=== PATIENT | female | born 1940 | race African-American/Black ===

== ENCOUNTER 2016-07-16 07:12 | Inpatient (IN) ==
--- NOTE | 2016-07-16 07:43 | PROVIDER DOCUMENTATION ---
HPI-General Adult <Mitesh Martinez M - Last Filed: 07/16/16 07:43> - General Source: patient - History of Present Illness -Gen Adult Nature of Presenting Problems: patient is a 75 y/o F that presents to the ER with two complaints: 1) no bowel movement x 2 days. Has some mild abdominal fullness and tenderness. Denies n/v/d. Is on pain medications for RA. Denies fever/chills 2) Patient had a fall x 3 days ago and landed on her lumbar/tailbone region. Since she has had pain but has full ROM to hips and able to walk. Saw her RA MD and given pain meds Location of Pain/Injury: reports: abdomen, back Pain Radiation: reports: no radiation Quality of Pain: reports: dull Severity: reports: mild, moderate Onset/Duration: reports: abrupt, 3 days ago Timing: reports: still present, constant Context/Activities at Onset: reports: recent trauma history Modifying Factors: worse with: movement Associated Symptoms: reports: back/neck pain, constipation, joint pain, vomiting , weakness, trouble walking. denies: fever/chills, genitourinary problems, nausea, shortness of breath Similar Symptoms Previously?: No Recently seen or treated by another doctor?: No <Lionel Bright - Last Filed: 07/16/16 10:01> - General Chief Complaint: N/V/D Stated Complaint: weakness dizziness Time Seen by Provider: 07/16/16 07:20 Allergies/Adverse Reactions: Patient Allergies Allergy/AdvReac Type Severity Reaction Status Date / Time cephalexin monohydrate * Allergy Unknown Unknown Verified 07/16/16 07:47 [From [facility]] Home Medications: Home Medication List Medication Instructions Recorded Confirmed Last Taken Type Alprazolam [Xanax] 0.25 mg PO DAILY 11/03/15 07/16/16 07/14/16 History Amlodipine Besylate [Norvasc] 5 mg PO DAILY 11/03/15 07/16/16 1 Day Ago History Aspirin [Aspirin EC] 81 mg PO DAILY 11/03/15 07/16/16 1 Day Ago History Bupropion [Wellbutrin] 100 mg PO BID 11/03/15 07/16/16 1 Day Ago History Buspirone [Buspar] 10 mg PO BID 11/03/15 07/16/16 1 Day Ago History Cholecalciferol (Vitamin D3) 1,000 unit PO DAILY 11/03/15 07/16/16 1 Day Ago History [Vitamin D3] Citalopram [Celexa] 20 mg PO DAILY 11/03/15 07/16/16 1 Day Ago History Clonidine HCl 0.2 mg PO DAILY 11/03/15 07/16/16 1 Day Ago History Levothyroxine [Synthroid] 100 microgm PO DAILY 11/03/15 07/16/16 1 Day Ago History Metformin HCl 500 mg PO DAILY 11/03/15 07/16/16 1 Day Ago History Ondansetron HCl [Zofran] 12.5 mg PO TID PRN 11/03/15 07/16/16 1 Day Ago History Ramipril [Altace] 10 mg PO DAILY 11/03/15 07/16/16 1 Day Ago History SIMVAstatin [Zocor] 40 mg PO QHS 11/03/15 07/16/16 1 Day Ago History Spironolactone/Hctz [Aldactazide 1 each PO DAILY 11/03/15 07/16/16 07/15/16 History 25/25] Docusate Sodium [Colace] 100 mg PO BID #60 capsule 11/11/15 07/16/16 2 Days Ago Rx Carbidopa 25 mg PO TID 07/16/16 07/16/16 1 Day Ago History Carbidopa/Levodopa [Sinemet 25/250] 1 each PO TID 07/16/16 07/16/16 1 Day Ago History Gabapentin [Neurontin] 300 mg PO DAILY 07/16/16 07/16/16 1 Day Ago History Hydrocodone/APAP 7.5 mg/325 mg 1 each PO Q6H PRN PRN 07/16/16 07/16/16 1 Day Ago History [[place]-7.5] Sulfamethoxazole/Trimethoprim 1 each PO QAM 07/16/16 07/16/16 2 Days Ago History [Bactrim Ds Tablet] Review of Systems - Adult - REVIEW OF SYSTEMS - ADULT Constitutional: denies: chills, fever Eyes: denies: double vision Ears, Nose, Mouth & Throat: denies: ear pain, sinus problem, throat pain, throat swelling Cardiovascular: denies: chest pain, palpitations, syncope Respiratory: denies: cough, shortness of breath, wheezing Gastrointestinal: reports: abdominal pain, constipation. denies: diarrhea, nausea, vomiting Genitourinary: reports: no symptoms reported Musculoskeletal: reports: back pain (lower lumbar). denies: joint pain, neck pain Integumentary: reports: no symptoms reported Neurological: reports: no symptoms reported Psychiatric: reports: no symptoms reported Endocrine: reports: no symptoms reported Hematologic/Lymphatic: reports: no symptoms reported Allergic/Immunologic: reports: no symptoms reported All Other Systems: Reviewed and Negative <Lionel Bright - Last Filed: 07/16/16 10:01> Past History - Adult - PAST MEDICAL HISTORY-ADULT Major Childhood Illnesses: reports: denies history Cardiovascular: reports: HTN, hyperlipidemia Neurological: reports: TIA Endocrine/Immune: reports: Diabetes, thyroid disorder Other Conditions: reports: cataract/glaucoma - PRIOR SURGERIES/PROCEDURES Surgical/Procedure History: reports: hysterectomy, tonsillectomy, joint replacement (Total knee), other (cataract removal, oral Sx, ) - PRIOR HOSPITALIZATIONS Prior Hospitalizations: reports: none - IMMUNIZATION STATUS Childhood Immunizations: UTD Flu Vaccine: UTD - FAMILY HISTORY Family History: reviewed, not pertinent <Mitesh Martinez - Last Filed: 07/16/16 07:43> - PAST MEDICAL HISTORY-ADULT Review of Records: reports: Old Records Reviewed, Nursing Assessment Review, Medications Reviewed Cardiovascular: reports: HTN, hyperlipidemia Musculoskeletal: reports: arthritis, chronic pain Neurological: reports: Parkinson's Endocrine/Immune: reports: thyroid disorder (hypo) - PRIOR SURGERIES/PROCEDURES Surgical/Procedure History: reports: cholecystectomy, hysterectomy, tonsillectomy, orthopedic (extremity) - IMMUNIZATION STATUS Childhood Immunizations: See Nurse Assessment Flu Vaccine: See Nurse Assessment - FAMILY HISTORY Family History: reviewed, not pertinent - SOCIAL HISTORY Smoking: non-smoker Living Situation: family <Lionel Bright - Last Filed: 07/16/16 10:01> Physical Exam-General - PHYSICAL EXAM-ADULT Initial Vital Signs Reviewed: Yes - CONSTITUTIONAL General Appearance: alert, no apparent distress - EYES Eyes: PERRL/EOMI, pink conjunctivae - HEAD, EARS, NOSE, MOUTH & THROAT HENMT: normocephalic/atraumatic, normal ENT inspection, other (dry oral mucosa) - NECK Neck: non-tender, full range of motion, normal inspection - RESPIRATORY Respiratory: chest non-tender, lungs clear, normal breath sounds, no respiratory distress, no accessory muscle use - CARDIOVASCULAR Cardiovascular: regular rate, rhythm, no edema, no JVD - GASTROINTESTINAL (ABDOMEN) Abdominal Exam: normal bowel sounds, soft, no organomegaly, no pulsatile mass, tenderness (LLQ and suprapubic), other (mild fullness). negative: distended, guarding, rigid, rebound - MUSCULOSKELETAL Back Exam: vertebral tenderness (L4, L5 mildly). negative: muscle spasm Extremity: normal range of motion, no calf tenderness, normal capillary refill, pelvis stable, tenderness (left hip but has full ROM) - SKIN Integumentary: normal color, warm/dry - NEUROLOGIC Neurologic: other (mild tremors more on right). negative: aphasia - PSYCHIATRIC Psych/Mental Status: normal mood/affect, normal thought content, normal thought process, oriented x 3 <Lionel Bright - Last Filed: 07/16/16 10:01> Progress - PLAN OF CARE/RESULTS Progress/Plan/Lab Results: plan of care-labs, ekg, xray, ct scan Vital Signs Temp Pulse Resp BP Pulse Ox 07/16/16 07:42 77 22 160/77 98 07/16/16 07:18 99 F 91 H 22 160/77 98 cephalexin monohydrate * [From One Month] Allergy (Unknown, Verified 07/16/16 07:47 ) Unknown Alprazolam [Xanax] 0.25 mg PO DAILY 11/03/15 Amlodipine Besylate [Norvasc] 5 mg PO DAILY 11/03/15 Aspirin [Aspirin EC] 81 mg PO DAILY 11/03/15 Bupropion [Wellbutrin] 100 mg PO BID 11/03/15 Buspirone [Buspar] 10 mg PO BID 11/03/15 Cholecalciferol (Vitamin D3) [Vitamin D3] 1,000 unit PO DAILY 11/03/15 Citalopram [Celexa] 20 mg PO DAILY 11/03/15 Clonidine HCl 0.2 mg PO DAILY 11/03/15 Levothyroxine [Synthroid] 100 microgm PO DAILY 11/03/15 Metformin HCl 500 mg PO DAILY 11/03/15 Ondansetron HCl [Zofran] 12.5 mg PO TID PRN 11/03/15 Ramipril [Altace] 10 mg PO DAILY 11/03/15 SIMVAstatin [Zocor] 40 mg PO QHS 11/03/15 Spironolactone/Hctz [Aldactazide ] 1 each PO DAILY 11/03/15 Docusate Sodium [Colace] 100 mg PO BID #60 capsule 11/11/15 Carbidopa 25 mg PO TID 07/16/16 Carbidopa/Levodopa [Sinemet 25/250] 1 each PO TID 07/16/16 Gabapentin [Neurontin] 300 mg PO DAILY 07/16/16 Hydrocodone/APAP 7.5 mg/325 mg [[place]-7.5] 1 each PO Q6H PRN PRN 07/16/16 Sulfamethoxazole/Trimethoprim [Bactrim Ds Tablet] 1 each PO QAM 07/16/16 Dietary Diet NPO Start SatJul 16 724 I&O 07/15/16 07/16/16 07/17/16 06:59 06:59 06:59 Output Total 15 Balance -15 Laboratory 07/16/16 07/16/16 07/16/16 07:40 07:40 07:25 WBC 7.61 RBC 4.50 Hgb 11.9 L Hct 37.4 MCV 83.1 MCH 26.4 L MCHC 31.8 L RDW Std Deviation 16.4 H Plt Count 277 MPV 9.4 Immature Gran % (Auto) 0.3 Neut % (Auto) 74.7 Lymph % (Auto) 16.6 L Giles % (Auto) 7.4 Eos % (Auto) 0.7 Baso % (Auto) 0.3 Immature Gran # (Auto) 0.02 Neut # (Auto) 5.70 Lymph # (Auto) 1.26 Giles # (Auto) 0.56 Eos # (Auto) 0.05 Baso # (Auto) 0.02 Sodium Potassium Chloride Carbon Dioxide Anion Gap BUN Creatinine Estimated GFR/1.73 m2 BUN/Creatinine Ratio Glucose Calculated Osmolality Calcium Total Bilirubin AST ALT Alkaline Phosphatase Troponin T Total Protein Albumin Globulin Albumin/Globulin Ratio Amylase Lipase Urine Source CLEAN CATCH Cancelled Urine Color YELLOW Cancelled Urine Clarity CLEAR Urine Turbidity Cancelled Urine pH 7.5 Cancelled Ur Specific Mize 1.015 Cancelled Urine Protein NEGATIVE Cancelled Ur Glucose (Stick) Cancelled Urine Ketones 15 A Ur Ketones (Stick) Cancelled Urine Blood NEGATIVE Cancelled Urine Nitrite NEGATIVE Cancelled Urine Bilirubin MODERATE A Cancelled Urine Urobilinogen 0.2 Urobilinogen Dipstick Cancelled Urine Leukocytes Cancelled Urine WBC (Auto) Cancelled Urine RBC (Auto) Cancelled U Epithel Cells (Auto) Cancelled Urine Bacteria (Auto) Cancelled Urine Microscopic RBC <10 Urine WBC NEGATIVE Urine Microscopic WBC <10 Ur Epithelial Cells <10 Urine Crystals NONE SEEN Urine Bacteria 1+ Urine Casts NONE SEEN Urine Yeast NONE SEEN Urine Glucose NEGATIVE 07/16/16 07/16/16 07:25 07:25 WBC RBC Hgb Hct MCV MCH MCHC RDW Std Deviation Plt Count MPV Immature Gran % (Auto) Neut % (Auto) Lymph % (Auto) Giles % (Auto) Eos % (Auto) Baso % (Auto) Immature Gran # (Auto) Neut # (Auto) Lymph # (Auto) Giles # (Auto) Eos # (Auto) Baso # (Auto) Sodium 138 Potassium 4.7 Chloride 99 Carbon Dioxide 23 L Anion Gap 16 BUN 19 Creatinine 1.1 H Estimated GFR/1.73 m2 59 BUN/Creatinine Ratio 17 Glucose 97 Calculated Osmolality 278 Calcium 9.3 Total Bilirubin 0.56 AST 9 L ALT < 5 L Alkaline Phosphatase 85 Troponin T < 0.010 Total Protein 7.1 Albumin 4.2 Globulin 2.9 Albumin/Globulin Ratio 1.4 Amylase 82 Lipase 15 Urine Source Urine Color Urine Clarity Urine Turbidity Urine pH Ur Specific Mize Urine Protein Ur Glucose (Stick) Urine Ketones Ur Ketones (Stick) Urine Blood Urine Nitrite Urine Bilirubin Urine Urobilinogen Urobilinogen Dipstick Urine Leukocytes Urine WBC (Auto) Urine RBC (Auto) U Epithel Cells (Auto) Urine Bacteria (Auto) Urine Microscopic RBC Urine WBC Urine Microscopic WBC Ur Epithelial Cells Urine Crystals Urine Bacteria Urine Casts Urine Yeast Urine Glucose Orders Category Date Time Status FSBS [Finger Stick Blood Sugar (ED)] DIRECTED Care 07/16/16 07:26 Active Saline Loc DIRECTED Care 07/16/16 07:24 Inactive Saline Loc DIRECTED Care 07/16/16 07:25 Active NPO Diet 07/16/16 07:24 Completed NPO Diet 07/16/16 07:25 Active CHEST-PORTABLE [RAD] Stat Exams 07/16/16 09:[address] ABD/PELVIS W/ IV CONT ONLY [CT] Stat Exams 07/16/16 07:44 Draft AMYLASE [CHEM] Stat Lab 07/16/16 07:25 Completed CBC WITH ELECTRONIC DIFF [HEME] Stat Lab 07/16/16 07:25 Completed COMPREHENSIVE METABOLIC PANEL [CHEM] Stat Lab 07/16/16 07:25 Completed LIPASE [CHEM] Stat Lab 07/16/16 07:25 Completed TROPONIN T Stat Lab 07/16/16 07:25 Completed EKG [EKG] Stat Ther 07/16/16 07:25 Ordered - XRAY 1 XRAY Study: Chest Impression: Normal XRAY Interpretation: nad - CT/MRI 1 CT Study: Abdomen, Pelvis Impression: Abnormal CT Results: constipation with rectal stool impaction, t12 compression fx - CONSULTS/PCP/HOSPITALIST Notification #1 *Consult/PCP/Hospitalist*: Time Discussed: 10:00 Reason/Comments: constipation, dehydration, t12 compression fx, Consult Disposition: Admit <Lionel Bright - Last Filed: 07/16/16 10:01> Departure <Mitesh Martinez - Last Filed: 07/16/16 07:43> - Departure Time of Disposition Order: 10:00 Certified Medical Emergency: Emergent <Lionel Bright - Last Filed: 07/16/16 10:01> - Departure DIAGNOSIS: Dehydration, Constipation due to opioid therapy, Fecal impaction in rectum T12 compression fracture Qualifiers: Encounter type: initial encounter Qualified Code(s): M48.54XA - Collapsed vertebra, not elsewhere classified, thoracic region, initial encounter for fracture Low back pain Qualifiers: Chronicity: acute Back pain laterality: midline Sciatica presence: without sciatica Qualified Code(s): M54.5 - Low back pain Nausea & vomiting Qualifiers: Vomiting type: cyclical vomiting Vomiting Intractability: non-intractable Qualified Code(s): G43.A0 - Cyclical vomiting, not intractable Disposition: ADMITTED INPATIENT 09 Condition: Stable Attestation - Scribe Verification/Attestation Scribe:: Lionel Bright Acting as Scribe for:: Mitesh Martinez Scribe documention review:: This chart was documented by a scribe and accurately reflects the service the provider performed and the decisions made by the provider. <Lionel Bright - Last Filed: 07/16/16 10:01> Physician Attestation - Physician Attestation I, the provider, attest to the following statement:: Mitesh Martinez Physician documentation Attestation:: This documentation recorded by the scribe accurately reflects the service I personally performed and the decisions made by me. <Lionel Bright - Last Filed: 07/16/16 10:01>
[2016-07-16 07:59] LABS: MANUAL DIFF NEEDED? NO
[2016-07-16 08:10] LABS: BASO% 0.3 % (0.0-0.8); EOS# 0.05 X1000 (0.0-0.7); EOS% 0.7 % (0.0-10.0); HEMATOCRIT 37.4 % (37.0-47.0); HEMOGLOBIN 11.9 g/dL (12.0-16.0); IMM GRAN# 0.02 X1000 (0.0-0.04); IMM GRAN% 0.3 % (0.0-0.5); LYMPH# 1.26 X1000 (1.2-3.4); LYMPH% 16.6 % (20.5-51.1); MCH 26.4 PG (27-31); MCHC 31.8 g/dL (33-37); MCV 83.1 FL (81-99); MONO# 0.56 X1000 (0.11-0.59); MONO% 7.4 % (1.7-9.3); MPV 9.4 FL (7.4-10.4); NEUT% 74.7 % (42.2-75.2); PLT 277 X1000 (130-400)
[2016-07-16 08:11] LABS: URINE SOURCE CLEAN CATCH
[2016-07-16 08:14] LABS: BILIRUBIN URINE MODERATE (NEGATIVE); BLOOD URINE NEGATIVE (NEGATIVE); CLARITY CLEAR (CLEAR); COLOR YELLOW; GLUCOSE URINE NEGATIVE (NEGATIVE); LEUKOCYTES URINE NEGATIVE (NEGATIVE); NITRITE URINE NEGATIVE (NEGATIVE); PH URINE 7.5; PROTEIN URINE NEGATIVE (NEGATIVE); SP GRAVITY URINE 1.015; UROBILINOGEN URINE 0.2 EU/dL (0.2-1.0)
[2016-07-16 08:21] LABS: AGAP 16; ALBUMIN 4.2 g/dL (3.5-5.0); ALKALINE PHOSPHATASE 85 U/L (32-104); AMYLASE 82 U/L (20-200); BUN 19 mg/dL (8-22); CALCIUM 9.3 mg/dL (8.8-10.2); CHLORIDE 99 mmol/L (98-107); COSMO 278; GOT 9 U/L (10-30); GPT < 5 U/L (10-36); LIPASE 15 U/L (13-60); POTASSIUM 4.7 mmol/L (3.5-5.1); SODIUM 138 mmol/L (136-145); TCO2 23 mmol/L (25-35); TOTAL BILIRUBIN 0.56 mg/dL (0.20-1.00); TOTAL PROTEIN 7.1 g/dL (6.3-8.3)
[2016-07-16 08:24] LABS: URINE CAST NONE SEEN /LPF; URINE CRYSTAL NONE SEEN /HPF; URINE CULTURE NEEDED? NO; URINE EPITHELIAL CELLS <10 /HPF (<10); URINE RBC <10 /HPF (<10); URINE WBC <10 /HPF (<10)
--- NOTE | 2016-07-16 08:59 | ED EKG INTERP ---
EKG Interpretation - EKG Time of EKG reading by physician:: 07:59 EKG Read and Signed by:: Mitesh Martinez EKG Interpretation (*Must complete 3 of following elements*): Abnormal Rate: 73 Rhythm: NSR [place]: normal QRS: normal MT Interval: normal ST Wave: normal Comments: LAE Attestation - Scribe Verification/Attestation Scribe:: Lionel Bright Acting as Scribe for:: Mitesh Martinez Scribe documention review:: This chart was documented by a scribe and accurately reflects the service the provider performed and the decisions made by the provider. Physician Attestation - Physician Attestation I, the provider, attest to the following statement:: Mitesh Martinez Physician documentation Attestation:: This documentation recorded by the scribe accurately reflects the service I personally performed and the decisions made by me.
--- NOTE | 2016-07-16 09:44 | Diag Imaging Result Document ---
PROCEDURE NAME: CT ABD/PELVIS W/ IV CONT ONLY - 07/16/2016 CT ABDOMEN AND PELVIS WITH INTRAVENOUS CONTRAST: A CT dose reduction protocol was used. COMPARISON: 09/16/2014. FINDINGS: The lung bases are clear. Heart size is grossly normal. There has been a cholecystectomy. The common bile duct is mildly dilated but this is nonspecific. No intrahepatic biliary dilation. The left renal cyst is slightly larger on today's exam measuring about 3.8 cm. There are some other scattered renal cysts as well. There is constipation with rectal stool impaction. There is diverticulosis of the sigmoid colon. No bowel obstruction or inflammation. Normal appendix. Urinary bladder is normal. Uterus is absent. There is a mild T12 compression fracture that is new since the prior exam with about 20% loss of height. IMPRESSION: 1. Constipation with rectal stool impaction. 2. New T12 compression fracture, age indeterminate. 3. Other nonspecific findings described above. MTDD
[2016-07-16] MEDS ORDERED: MORPHINE IV PRN ×2 (10:02→19:33)
[2016-07-16] MEDS ORDERED: TYLENOL PO PRN (10:02)
[2016-07-16] MEDS ORDERED: NS 1,000 ML IV ONE (10:10)
[2016-07-16] MEDS ORDERED: MORPHINE ONE (10:13)
[2016-07-16] MEDS: ZOFRAN IV PRN ×2 (10:26→21:37)
--- NOTE | 2016-07-16 11:25 | Diag Imaging Result Document ---
PROCEDURE NAME: CHEST-PORTABLE - 07/16/2016 PORTABLE CHEST: COMPARISON: 11/04/2015. FINDINGS: The lungs are well expanded. The heart is not enlarged. The vessels are not distended. No contusions or pneumothoraces. No pleural effusions identified. IMPRESSION: No injury is seen.
--- NOTE | 2016-07-16 12:53 | EKG Report ---
Test Performed on : 07/16/2016 07:59:59 AM Test Reason : FALL Blood Pressure : / mmHG Vent. Rate : 073 BPM Atrial Rate : 073 BPM P-R Int : 148 ms QRS Dur : 076 ms QT Int : 396 ms P-R-T Axes : 071 019 058 degrees QTc Int : 436 ms Normal sinus rhythm. Possible Left atrial enlargement Borderline ECG When compared with ECG of 04-NOV-2015 05:54, Criteria for Septal infarct are no longer present Unconfirmed Result
[2016-07-16] MEDS: SODIUM CHLORIDE 0.9% INJ PRN (15:30)
[2016-07-16] MEDS: PHENERGAN IV PRN (15:30)
[2016-07-16 16:45] LABS: URINE CULTURE NEEDED? NO; URINE MICRO REVIEW NEEDED? NO; URINE SOURCE CATH
[2016-07-16 16:55] LABS: UR EPITHELIAL CELLS <10 /HPF (<10); URINE BACTERIA NEGATIVE /HPF; URINE RBC <10 /HPF (<10); URINE WBC <10 /HPF (<10)
[2016-07-16 17:00] LABS: BILIRUBIN URINE MODERATE (NEGATIVE); BLOOD URINE NEGATIVE (NEGATIVE); COLOR YELLOW; GLUCOSE URINE NEGATIVE (NEGATIVE); LEUKOCYTES URINE NEGATIVE (NEGATIVE); NITRITE URINE NEGATIVE (NEGATIVE); PH URINE 6.5; PROTEIN URINE NEGATIVE (NEGATIVE); SP GRAVITY URINE 1.042; TURBIDITY URINE CLEAR (CLEAR); UROBILINOGEN URINE NORMAL (NORMAL)
[2016-07-16] MEDS: PROTONIX IV SCH (21:37)
[2016-07-16] MEDS: SODIUM CHLORIDE 0.9% INJ SCH (21:37)
[2016-07-16] MEDS: DILAUDID IV PRN (21:37)
[2016-07-16] MEDS: BUSPAR PO SCH (21:40)
[2016-07-16] MEDS: CLINIMIX E 4.25%-5% SOLUTION 1,000 ML IV SCH (21:40)
[2016-07-16] MEDS: WELLBUTRIN PO SCH (21:40)
[2016-07-16] MEDS: ZOCOR PO SCH (21:40)
[2016-07-16] MEDS: HUMULIN R SUBQ SCH (21:41)
[2016-07-16] MEDS: COLACE PO SCH (21:45)
--- NOTE | 2016-07-16 22:03 | HISTORY AND PHYSICAL ---
CHIEF COMPLAINT: 1. Intractable nausea, vomiting. 2. Constipation. 3. History of fall, sustained injury to the mid back. HISTORY OF PRESENT ILLNESS: She is a 75-year-old, female who had been seen by purchasing manager/sales, Dr. Méndez. Apparently he gave some injections, steroid shots, and she went home and fell backwards sustaining injury to the back. She is in a lot of pain. Patient was given [place]. Apparently, she came back to the ER this afternoon with intractable nausea, vomiting, and back pain. Upon workup she has constipation and she has a new T12 compression fracture. She is not able to eat anything. As a result, a hospital admission was warranted. Upon questioning the patient, the pain is localized sometimes radiating to the right leg but no sensory symptoms like tingling, numbness or weakness. Basically admitted to the hospital for the T12 compression fracture, constipation, impending dehydration. As a result, a hospital admission was warranted. PAST MEDICAL HISTORY: Type 2 diabetes, metabolic syndrome, hypertension, hyperlipidemia, hypothyroidism, retinal detachment of left eye, history of Schatzki's ring dilated by Dr. 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 PAST SURGICAL HISTORY: Left ganglion cyst excision, tonsillectomy, thyroid surgery, cholecystectomy, left cataract surgery, partial hysterectomy, left ganglion cyst, status post right knee replacement, rotator cuff repair. MEDICATIONS: Vitamin D 3000 units daily, metformin 500 p.o. daily, simvastatin 40 daily, amlodipine 5 mg daily, Aldactazide 20/25 daily, clonidine 0.2 daily, aspirin 81 mg daily, Xanax 0.25 daily, Celexa 20 daily, BuSpar 10 p.o. b.i.d., Wellbutrin 100 p.o. b.i.d., Altace 10 mg daily, Synthroid 100 mcg daily, Zofran as needed, Colace 100 p.o. b.i.d., [place] 7.5 q.6 hours as needed, recently started on Bactrim, Sinemet 25/250 one tab p.o. t.i.d., carbidopa 25 p.o. t.i.d., Neurontin 300 daily. ALLERGIES: Cephalexin. SOCIAL HISTORY: . . Homemaker. History of previous smoking. No alcohol. Two children. FAMILY HISTORY: Mom of suicide at 50, father cause not known. HEALTH MAINTENANCE: Influenza vaccine 2016, pneumococcal vaccine 2016, tetanus 2011. Last mammography 2013. Colonoscopy 2008. REVIEW OF SYSTEMS: HEENT: No headache. No vision problem. No earache. No sore throat. Neck: No goiter. No lymphadenopathy. No bruit. Cardiopulmonary: No chest pain, shortness of breath, PND, orthopnea. Gastrointestinal: Nausea, vomiting, constipation, intermittent bleeding per rectum. She was referred to Dr. Mcelroy. Genitourinary: No history of hesitancy, frequency. No swelling of legs. Musculoskeletal: Intractable back pain localized. No radiation. No weakness. No sensory symptoms like tingling, numbness, paresthesias. Neurologic: No seizures. No dizziness/vertigo. PHYSICAL EXAMINATION: VITAL SIGNS: Stable. 5 feet 6 inches, 171 pounds. HEENT: Atraumatic, normocephalic. Pupils equal, reactive to light. TMs are normal. Nose and throat within normal limits. NECK: Supple. No lymphadenopathy. No goiter. CHEST: Bilateral air entry. No rales, no wheezing. HEART: Sounds are regular. No murmur. ABDOMEN: Belly is soft, obese, nontender, good bowel sounds. No masses palpable. SKIN: Scar present on the right knee. EXTREMITIES: No peripheral edema, cyanosis, clubbing. NEUROLOGIC EXAMINATION: Alert and oriented to place and person. No obvious deficits noted in the legs. LABORATORIES: CBC: White cell count 7.6, hematocrit 37, platelets 277,000. SMA 7 is sodium 138, potassium 4.7, chloride 99, BUN 19, creatinine 1.1. Liver function tests were normal. Urinalysis with slight ketones. Chest x-ray on 07/16/2016: No injury seen. CT scan of the abdomen and pelvis: Constipation, new T12 compression fracture. ASSESSMENT AND PLAN: 1. A 75-year-old pleasant, female, admitted to the hospital with intractable back pain due to a new T12 compression fracture, most likely osteoporotic. Consider bone scan and back brace, physical therapy, pain control with Dilaudid and if any change in neurological deficits consider MRI. 2. Deep vein thrombosis. GI prophylaxis with Lovenox and Protonix respectively. 3. Nausea and vomiting due to pain and constipation. IV Dilaudid, IV Zofran. 4. Constipation. We will give her Dulcolax since she is nauseated. 5. Type 2 diabetes on metformin sliding scale. 6. Reconcile home medicines. 7. Deconditioning with idiopathic Parkinson's disease. Recently seen by Dr. Hills. Increasing carbidopa and Sinemet. 8. Hypothyroidism, on Synthroid with retrosternal goiter. Stable. 9. Hyperlipidemia. On Zocor. 10. We will slowly reconcile home medicines when she is able to tolerate. We will follow up on the clinical course. Discussed with the family.
[2016-07-17] MEDS: HUMULIN R SUBQ SCH ×4 (06:19→22:48)
[2016-07-17] MEDS: SYNTHROID PO SCH (06:20)
[2016-07-17 07:18] LABS: CALCIUM 9.1 mg/dL (8.8-10.2); HEMOGLOBIN A1C 5.6 % (4.8-6.0); POTASSIUM 4.3 mmol/L (3.5-5.1)
[2016-07-17] MEDS: COLACE PO SCH ×2 (08:59→22:47)
[2016-07-17] MEDS: BUSPAR PO SCH ×2 (08:59→22:47)
[2016-07-17] MEDS: NORVASC PO SCH (08:59)
[2016-07-17] MEDS: WELLBUTRIN PO SCH ×2 (08:59→22:49)
[2016-07-17] MEDS: VITAMIN D PO SCH (08:59)
[2016-07-17] MEDS: GLUCOPHAGE PO SCH (09:00)
[2016-07-17] MEDS: ASPIRIN EC PO SCH (09:00)
[2016-07-17] MEDS: ALTACE PO SCH (09:00)
[2016-07-17] MEDS: CELEXA PO SCH (09:00)
[2016-07-17] MEDS: NEURONTIN PO SCH (09:00)
[2016-07-17] MEDS: SINEMET 25/250 PO SCH ×3 (09:00→16:50)
[2016-07-17] MEDS: XANAX PO SCH (09:00)
[2016-07-17] MEDS ORDERED: CATAPRES PO SCH (09:00)
[2016-07-17] MEDS: LOVENOX SUBQ SCH (09:01)
[2016-07-17] MEDS: LODOSYN PO SCH ×3 (09:01→18:13)
--- NOTE | 2016-07-17 14:43 | Diag Imaging Result Document ---
PROCEDURE NAME: BONE SCAN, TOTAL BODY - 07/16/2016 NUCLEAR MEDICINE WHOLE BODY BONE SCAN: COMPARISON: No prior bone scan is available for comparison. FINDINGS: 25.9 mCi of technetium-99 MDP was administered intravenously and images of the whole body were obtained in the usual fashion post administration. Band-like activity is seen involving the T12 vertebral body. This corresponds to a wedge deformity that can be seen on a previous CT dated 07/16/2016. This is consistent with an acute-to- subacute compression fracture. No other abnormal spinal activity is identified. There is evidence of prior right knee arthroplasty. There is mild increased uptake adjacent to the hardware suggesting mild sclerotic shielding. There is degenerative-appearing uptake involving the left knee, bilateral ankles, and both feet. No other abnormal increased uptake is identified. There is normal excretion of radiotracer by the system. Normal soft-tissue uptake is noted. IMPRESSION: 1. Band-like increased activity associated with the T12 vertebral body corresponding to a wedge deformity seen on the recent CT. This is consistent with an [id number] compression fracture. 2. Multijoint degenerative uptake as described.
[2016-07-17] MEDS: CLINIMIX E 4.25%-5% SOLUTION 1,000 ML IV SCH (18:12)
[2016-07-17] MEDS: ZOCOR PO SCH (22:47)
[2016-07-17] MEDS: PROTONIX IV SCH (22:47)
[2016-07-17] MEDS: SODIUM CHLORIDE 0.9% INJ SCH (22:47)
[2016-07-17] MEDS: DULCOLAX PR SCH ×2 (22:48→22:54)
[2016-07-18] MEDS: DILAUDID IV PRN ×2 (01:44→11:24)
[2016-07-18] MEDS: DULCOLAX PR SCH ×2 (05:59→20:09)
[2016-07-18] MEDS: HUMULIN R SUBQ SCH ×4 (06:12→23:53)
[2016-07-18] MEDS: SYNTHROID PO SCH (06:26)
[2016-07-18] MEDS: LOVENOX SUBQ SCH (08:18)
[2016-07-18] MEDS: CELEXA PO SCH (08:19)
[2016-07-18] MEDS: XANAX PO SCH (08:19)
[2016-07-18] MEDS: NORVASC PO SCH (08:19)
[2016-07-18] MEDS: GLUCOPHAGE PO SCH (08:19)
[2016-07-18] MEDS: ASPIRIN EC PO SCH (08:19)
[2016-07-18] MEDS: BUSPAR PO SCH ×2 (08:19→20:08)
[2016-07-18] MEDS: VITAMIN D PO SCH (08:19)
[2016-07-18] MEDS: COLACE PO SCH ×2 (08:19→20:09)
[2016-07-18] MEDS: ALTACE PO SCH (08:19)
[2016-07-18] MEDS: NEURONTIN PO SCH (08:19)
[2016-07-18] MEDS: SINEMET 25/250 PO SCH ×3 (08:21→17:34)
[2016-07-18] MEDS: WELLBUTRIN PO SCH ×2 (08:21→20:08)
[2016-07-18] MEDS: LODOSYN PO SCH ×3 (14:27→17:15)
[2016-07-18] MEDS: CLINIMIX E 4.25%-5% SOLUTION 1,000 ML IV SCH (14:27)
[2016-07-18] MEDS: PROTONIX IV SCH (20:08)
[2016-07-18] MEDS: SODIUM CHLORIDE 0.9% INJ SCH (20:08)
[2016-07-18] MEDS: ZOCOR PO SCH (20:08)
[2016-07-19] MEDS: DILAUDID IV PRN (00:52)
[2016-07-19] MEDS: ZOFRAN IV PRN (00:52)
[2016-07-19] MEDS: SYNTHROID PO SCH (06:32)
[2016-07-19] MEDS: HUMULIN R SUBQ SCH ×4 (06:32→21:18)
[2016-07-19] MEDS: ALTACE PO SCH (09:10)
[2016-07-19] MEDS: LOVENOX SUBQ SCH (09:10)
[2016-07-19] MEDS: BUSPAR PO SCH ×2 (09:10→21:18)
[2016-07-19] MEDS: GLUCOPHAGE PO SCH (09:10)
[2016-07-19] MEDS: VITAMIN D PO SCH (09:11)
[2016-07-19] MEDS: CELEXA PO SCH (09:11)
[2016-07-19] MEDS: XANAX PO SCH (09:11)
[2016-07-19] MEDS: COLACE PO SCH ×2 (09:11→21:18)
[2016-07-19] MEDS: NEURONTIN PO SCH (09:11)
[2016-07-19] MEDS: NORVASC PO SCH (09:11)
[2016-07-19] MEDS: ASPIRIN EC PO SCH (09:12)
[2016-07-19] MEDS: SINEMET 25/250 PO SCH ×3 (09:12→17:35)
[2016-07-19] MEDS: WELLBUTRIN PO SCH ×2 (09:12→21:18)
[2016-07-19] MEDS: LODOSYN PO SCH ×3 (11:20→17:35)
[2016-07-19] MEDS: CLINIMIX E 4.25%-5% SOLUTION 1,000 ML IV SCH (13:05)
[2016-07-19] MEDS: PROTONIX IV SCH (21:17)
[2016-07-19] MEDS: ZOCOR PO SCH (21:18)
[2016-07-19] MEDS: DULCOLAX PR SCH (21:18)
[2016-07-19] MEDS: SODIUM CHLORIDE 0.9% INJ SCH (21:18)
[2016-07-20] MEDS: HUMULIN R SUBQ SCH ×4 (06:20→22:06)
[2016-07-20] MEDS: SYNTHROID PO SCH (06:35)
[2016-07-20] MEDS: CLINIMIX E 4.25%-5% SOLUTION 1,000 ML IV SCH (07:51)
[2016-07-20] MEDS: NEURONTIN PO SCH (09:08)
[2016-07-20] MEDS: GLUCOPHAGE PO SCH (09:08)
[2016-07-20] MEDS: LODOSYN PO SCH ×3 (09:08→17:11)
[2016-07-20] MEDS: ASPIRIN EC PO SCH (09:08)
[2016-07-20] MEDS: CELEXA PO SCH (09:08)
[2016-07-20] MEDS: VITAMIN D PO SCH (09:08)
[2016-07-20] MEDS: NORVASC PO SCH (09:08)
[2016-07-20] MEDS: COLACE PO SCH ×2 (09:08→22:05)
[2016-07-20] MEDS: XANAX PO SCH (09:08)
[2016-07-20] MEDS: BUSPAR PO SCH ×2 (09:08→22:06)
[2016-07-20] MEDS: SINEMET 25/250 PO SCH ×3 (09:08→17:12)
[2016-07-20] MEDS: LOVENOX SUBQ SCH (09:09)
[2016-07-20] MEDS: WELLBUTRIN PO SCH ×2 (09:09→22:05)
[2016-07-20] MEDS: ALTACE PO SCH (09:09)
--- NOTE | 2016-07-20 10:15 | DISCHARGE SUMMARY ---
ADMISSION DATE: 07/17/2016 DISCHARGE DATE: 08/03/2016 DISCHARGING DIAGNOSES: 1. Intractable back pain due to T12 compression fracture. 2. Type 2 diabetes. 3. Metabolic syndrome. 4. Hypertension. 5. Hyperlipidemia. 6. Hypothyroidism. 7. Retinal detachment of left eye. 8. History of acid reflux disease. 9. Retrosternal goiter. 10. Idiopathic Parkinson's disease. CONSULTS: Inpatient physical therapy. BRIEF HISTORY: Please see the H and P that was done on 07/16/2016. In brief, she is a 75-year- old female, who was admitted to the hospital after she fell at home sustained injury to the back at T12 compression fracture. Neurological exam is intact. She did not have any deficits. She was given symptomatic treatment with a back brace, and physical therapy. She was also nauseated and given IV fluids. Pain was adequately controlled. She was constipated requiring Dulcolax and subsequently, she is tolerating the diet very well. With underlying comorbid conditions, and idiopathic Parkinson's disease and T12 compression fracture, family decided to go for rehab at [facility]. DIAGNOSTIC DATA: Labs as follows: White cell count 7.6, hematocrit 37, platelet 277,000. SMA 7, sodium 135, potassium 4.3, chloride 100, BUN 22, creatinine 1.1, glucose 101, liver function tests were normal, vitamin D 56.3. Urinalysis is clear. Bone scan, T12 compression fracture. Chest x-ray: No acute disease identified. EKG: Normal sinus. Nothing acute. DISCHARGE INSTRUCTIONS: 1. Vitamin D 3000 units daily. 2. Metformin 500 daily. 3. Simvastatin 40 daily. 4. Amlodipine 5 daily. Aldactazide 25/25 daily. 5. Discontinue clonidine in light of low blood pressure. 6. Aspirin 81 mg daily. 7. Xanax 0.25 daily. 8. Celexa 20 daily. 9. BuSpar 10 p.o. b.i.d. 10. Wellbutrin 100 p.o. b.i.d. 11. Altace 10 mg daily. 12. Synthroid 100 mcg daily. 13. Colace 100 p.o. b.i.d. 14. Sheridan 7.5 as needed for pain. 15. Sinemet 25/250 one tablet p.o. t.i.d. 16. Carbidopa 25 t.i.d. 17. Neurontin 300 daily. 18. Calcitonin nasal spray 1 spray daily with alternating nostrils. DISCHARGE INSTRUCTIONS: Back brace. Outpatient physical therapy. Follow up in my office in 10 days. MTDD
[2016-07-20] MEDS: ZOCOR PO SCH (22:05)
[2016-07-20] MEDS: SODIUM CHLORIDE 0.9% INJ SCH (22:06)
[2016-07-20] MEDS: PROTONIX IV SCH (22:06)
[2016-07-20] MEDS: DULCOLAX PR SCH (22:06)
[2016-07-21] MEDS: CLINIMIX E 4.25%-5% SOLUTION 1,000 ML IV SCH (00:23)
[2016-07-21] MEDS: ZOFRAN IV PRN ×2 (02:19→06:07)
[2016-07-21] MEDS: PHENERGAN IV PRN ×4 (04:07→23:33)
[2016-07-21] MEDS: SODIUM CHLORIDE 0.9% INJ PRN ×4 (04:07→23:33)
[2016-07-21] MEDS: SYNTHROID PO SCH (06:06)
[2016-07-21] MEDS: HUMULIN R SUBQ SCH ×4 (06:07→23:48)
[2016-07-21] MEDS: BUSPAR PO SCH ×3 (10:01→23:46)
[2016-07-21] MEDS: ALTACE PO SCH (10:01)
[2016-07-21] MEDS: XANAX PO SCH (10:01)
[2016-07-21] MEDS: ASPIRIN EC PO SCH (10:01)
[2016-07-21] MEDS: NORVASC PO SCH (10:02)
[2016-07-21] MEDS: GLUCOPHAGE PO SCH (10:02)
[2016-07-21] MEDS: CELEXA PO SCH (10:02)
[2016-07-21] MEDS: LODOSYN PO SCH ×3 (10:02→16:00)
[2016-07-21] MEDS: COLACE PO SCH ×3 (10:02→23:47)
[2016-07-21] MEDS: NEURONTIN PO SCH (10:02)
[2016-07-21] MEDS: SINEMET 25/250 PO SCH ×3 (10:03→15:59)
[2016-07-21] MEDS: VITAMIN D PO SCH (10:03)
[2016-07-21] MEDS: WELLBUTRIN PO SCH ×3 (10:03→23:48)
[2016-07-21] MEDS: LOVENOX SUBQ SCH (10:04)
--- NOTE | 2016-07-21 13:42 | PROGRESS NOTE ---
DATE: 07/21/2016 75-year-old, patient with multiple medical problems. Admitted status post fall. New compression fracture of T12. The patient is still in moderate pain. Patient is waiting for rehab bed. Patient does have nausea, oral intake is poor. No high-grade fever or chills. Known case of diabetes. Blood sugar doing fair. No major hypoglycemic episode. As per history the patient does have anxiety and nervousness which makes her nauseous. No typical chest pain or palpitation. Denied any headache and no leg weakness. Admission history physical noted. PAST MEDICAL HISTORY: Significant for hypertension, diabetes mellitus, osteoarthritis, hypertension, hyperlipidemia, hypothyroidism, retinal detachment left eye, Schatzki's ring requiring dilatation, retrosternal goiter, idiopathic Parkinson's disease. CURRENT MEDICATION: Noted. Her vital signs reviewed.Skin: Senile turgor. HEENT: Head atraumatic, normocephalic. Pupils reacting to light. Neck: Supple. No JVD. Lungs: Bibasilar crepitations. Heart: S1 and S2 heard. Abdomen: Soft, globular. Bowel sounds present. Extremities: No cyanosis, clubbing. No acute DVT. UNSCRAMBLER: Alert, awake. Answering questions fair. Able to move all 4 limbs. Admission lab data noted. PROBLEMS: Include: Compression fracture of T12, NIDDM, hypertension, hypothyroidism, gastritis and reflux disease, idiopathic Parkinson's disease. Patient medication noted. I am going to check appropriate labs. Continue current treatment. Repeat abdominal x-ray because of nausea.
--- NOTE | 2016-07-21 16:04 | Diag Imaging Result Document ---
PROCEDURE NAME: ABDOMEN FLAT/UPRIGHT - 07/21/2016 ABDOMEN, 2 VIEWS: COMPARISON: CT from 07/16/2016. FINDINGS: There is stable constipation with rectal stool impaction. IMPRESSION: No change from prior.
[2016-07-21] MEDS: SODIUM CHLORIDE 0.9% INJ SCH (19:38)
[2016-07-21] MEDS: PROTONIX IV SCH (19:38)
[2016-07-21] MEDS: ZOCOR PO SCH ×2 (23:34→23:47)
[2016-07-21] MEDS: DULCOLAX PR SCH (23:36)
[2016-07-22] MEDS: SYNTHROID PO SCH (06:23)
[2016-07-22] MEDS: CLINIMIX E 4.25%-5% SOLUTION 1,000 ML IV SCH (06:30)
[2016-07-22] MEDS: HUMULIN R SUBQ SCH ×4 (06:30→20:19)
[2016-07-22 08:19] LABS: BASO% 0.1 % (0.0-0.8); EOS# 0.01 X1000 (0.0-0.7); EOS% 0.1 % (0.0-10.0); HEMATOCRIT 38.7 % (37.0-47.0); HEMOGLOBIN 12.8 g/dL (12.0-16.0); IMM GRAN# 0.04 X1000 (0.0-0.04); IMM GRAN% 0.3 % (0.0-0.5); LYMPH# 0.97 X1000 (1.2-3.4); LYMPH% 7.6 % (20.5-51.1); MANUAL DIFF NEEDED? NO; MCH 27.1 PG (27-31); MCHC 33.1 g/dL (33-37); MONO# 0.85 X1000 (0.11-0.59); MONO% 6.7 % (1.7-9.3); MPV 9.3 FL (7.4-10.4); NEUT% 85.2 % (42.2-75.2); PLT 332 X1000 (130-400); RBC 4.72 XMIL (4.2-5.4)
[2016-07-22 08:23] LABS: AGAP 17; ALBUMIN 4.1 g/dL (3.5-5.0); ALKALINE PHOSPHATASE 96 U/L (32-104); BUN 22 mg/dL (8-22); CALCIUM 9.4 mg/dL (8.8-10.2); CHLORIDE 99 mmol/L (98-107); COSMO 279; GOT 11 U/L (10-30); GPT 15 U/L (10-36); POTASSIUM 4.1 mmol/L (3.5-5.1); SODIUM 137 mmol/L (136-145); TCO2 21 mmol/L (25-35); TOTAL BILIRUBIN 0.57 mg/dL (0.20-1.00); TOTAL PROTEIN 7.7 g/dL (6.3-8.3)
--- NOTE | 2016-07-22 12:19 | PROGRESS NOTE ---
DATE: 07/22/2016 SUBJECTIVE: Ms. Otero is doing fair, though patient is more alert and awake today. Complaining of low back pain. The patient did have a small bowel movement. Her x-ray done yesterday did reveal fecal impaction. No chest pain. Oral intake poor. At times patient is refusing her medicine. Patient admitted with fall and acute T12 fracture. OBJECTIVE: Vital signs: Noted. Lungs: Bilateral good air entry present. CVS: S1 and S2 heard. Abdomen: Soft, globular. Bowel sounds present. MOLD CLAMPER: Alert, awake. Able to move all 4 limbs. LAB DATA: Revealed WBC count 12.75, hemoglobin 12.8, hematocrit 38.7, platelet count 332,000. Electrolytes fairly benign. We are going to check her for a fecal impaction. Her x-ray result done yesterday reviewed. ASSESSMENT: Her problems include: 1. Noninsulin-dependent diabetes mellitus. 2. Hypertension. 3. Hypothyroidism. 4. Compression fracture of T12. 5. Parkinson disease. PLAN: Encourage oral feeding. Advised her to take medicine regularly. Continue current treatment. If clinical condition permits, will plan discharging her to rehab tomorrow.
[2016-07-22] MEDS: XANAX PO SCH (15:44)
[2016-07-22] MEDS: ALTACE PO SCH (15:44)
[2016-07-22] MEDS: WELLBUTRIN PO SCH ×2 (15:45→20:17)
[2016-07-22] MEDS: VITAMIN D PO SCH (15:45)
[2016-07-22] MEDS: SINEMET 25/250 PO SCH ×3 (15:45→18:32)
[2016-07-22] MEDS: ASPIRIN EC PO SCH (15:48)
[2016-07-22] MEDS: NORVASC PO SCH (15:49)
[2016-07-22] MEDS: NEURONTIN PO SCH (15:49)
[2016-07-22] MEDS: LODOSYN PO SCH ×2 (15:50→18:32)
[2016-07-22] MEDS: COLACE PO SCH ×2 (15:50→20:18)
[2016-07-22] MEDS: GLUCOPHAGE PO SCH (15:50)
[2016-07-22] MEDS: LOVENOX SUBQ SCH (15:50)
[2016-07-22] MEDS: CELEXA PO SCH (15:51)
[2016-07-22] MEDS: BUSPAR PO SCH ×2 (15:51→20:18)
[2016-07-22] MEDS: ZOCOR PO SCH (20:17)
[2016-07-22] MEDS: SODIUM CHLORIDE 0.9% INJ SCH (20:18)
[2016-07-22] MEDS: PROTONIX IV SCH (20:18)
[2016-07-22] MEDS: DULCOLAX PR SCH (20:18)
[2016-07-22] MEDS: ZOFRAN IV PRN (20:24)
[2016-07-23] MEDS: DILAUDID IV PRN (00:13)
[2016-07-23] MEDS: CLINIMIX E 4.25%-5% SOLUTION 1,000 ML IV SCH ×3 (04:31→22:04)
[2016-07-23] MEDS: HUMULIN R SUBQ SCH ×4 (06:21→22:03)
[2016-07-23] MEDS: ZOFRAN IV PRN (06:54)
[2016-07-23] MEDS: SYNTHROID PO SCH (07:05)
[2016-07-23] MEDS: ASPIRIN EC PO SCH (09:10)
[2016-07-23] MEDS: WELLBUTRIN PO SCH ×2 (09:10→22:04)
[2016-07-23] MEDS: SINEMET 25/250 PO SCH ×3 (09:10→17:01)
[2016-07-23] MEDS: NEURONTIN PO SCH (09:11)
[2016-07-23] MEDS: VITAMIN D PO SCH (09:11)
[2016-07-23] MEDS: CELEXA PO SCH (09:11)
[2016-07-23] MEDS: XANAX PO SCH (09:11)
[2016-07-23] MEDS: LODOSYN PO SCH ×3 (09:11→17:01)
[2016-07-23] MEDS: ALTACE PO SCH (09:11)
[2016-07-23] MEDS: COLACE PO SCH ×2 (09:11→22:02)
[2016-07-23] MEDS: NORVASC PO SCH (09:11)
[2016-07-23] MEDS: GLUCOPHAGE PO SCH (09:11)
[2016-07-23] MEDS: BUSPAR PO SCH ×2 (09:11→22:03)
[2016-07-23] MEDS: LOVENOX SUBQ SCH (09:11)
[2016-07-23] MEDS: DULCOLAX PR SCH ×2 (13:15→22:02)
[2016-07-23] MEDS: SODIUM CHLORIDE 0.9% INJ SCH (22:02)
[2016-07-23] MEDS: PROTONIX IV SCH (22:02)
[2016-07-23] MEDS: ZOCOR PO SCH (22:03)
[2016-07-24] MEDS: SYNTHROID PO SCH ×2 (04:25→06:18)
[2016-07-24] MEDS: HUMULIN R SUBQ SCH ×4 (06:32→22:56)
[2016-07-24] MEDS: CLINIMIX E 4.25%-5% SOLUTION 1,000 ML IV SCH ×3 (08:47→23:35)
[2016-07-24] MEDS: NEURONTIN PO SCH (08:49)
[2016-07-24] MEDS: ASPIRIN EC PO SCH (08:50)
[2016-07-24] MEDS: BUSPAR PO SCH ×2 (09:01→20:40)
[2016-07-24] MEDS: WELLBUTRIN PO SCH ×2 (09:01→20:40)
[2016-07-24] MEDS: VITAMIN D PO SCH (09:01)
[2016-07-24] MEDS: LODOSYN PO SCH ×3 (09:01→17:20)
[2016-07-24] MEDS: COLACE PO SCH ×2 (09:02→20:40)
[2016-07-24] MEDS: NORVASC PO SCH (09:02)
[2016-07-24] MEDS: ALTACE PO SCH (09:02)
[2016-07-24] MEDS: GLUCOPHAGE PO SCH (09:02)
[2016-07-24] MEDS: CELEXA PO SCH (09:02)
[2016-07-24] MEDS: LOVENOX SUBQ SCH (09:05)
[2016-07-24] MEDS: SINEMET 25/250 PO SCH ×3 (10:42→17:20)
[2016-07-24] MEDS: XANAX PO SCH ×2 (10:43→22:24)
[2016-07-24] MEDS: DULCOLAX PR SCH (20:40)
[2016-07-24] MEDS: ZOCOR PO SCH (20:40)
[2016-07-24] MEDS: SODIUM CHLORIDE 0.9% INJ SCH (20:41)
[2016-07-24] MEDS: PROTONIX IV SCH (20:41)
[2016-07-25] MEDS: CLINIMIX E 4.25%-5% SOLUTION 1,000 ML IV SCH (03:34)
[2016-07-25] MEDS: SYNTHROID PO SCH ×2 (05:58→08:44)
[2016-07-25] MEDS: HUMULIN R SUBQ SCH ×4 (06:00→21:17)
[2016-07-25] MEDS: ALTACE PO SCH (08:55)
[2016-07-25] MEDS: NEURONTIN PO SCH (08:55)
[2016-07-25] MEDS: LODOSYN PO SCH ×3 (08:56→16:30)
[2016-07-25] MEDS: GLUCOPHAGE PO SCH (08:57)
[2016-07-25] MEDS: NORVASC PO SCH (08:57)
[2016-07-25] MEDS: VITAMIN D PO SCH (08:57)
[2016-07-25] MEDS: WELLBUTRIN PO SCH ×2 (08:57→21:16)
[2016-07-25] MEDS: ASPIRIN EC PO SCH (08:57)
[2016-07-25] MEDS: COLACE PO SCH ×2 (08:57→21:16)
[2016-07-25] MEDS: CELEXA PO SCH (08:57)
[2016-07-25] MEDS: LOVENOX SUBQ SCH (08:57)
[2016-07-25] MEDS: BUSPAR PO SCH ×2 (08:57→21:16)
[2016-07-25] MEDS: SINEMET 25/250 PO SCH ×3 (09:03→16:31)
[2016-07-25] MEDS: DILAUDID IV PRN (16:42)
[2016-07-25] MEDS: PROTONIX PO SCH (21:16)
[2016-07-25] MEDS: DULCOLAX PR SCH ×2 (21:16→21:23)
[2016-07-25] MEDS: ZOCOR PO SCH (21:16)
[2016-07-25] MEDS: XANAX PO SCH (21:21)
[2016-07-26] MEDS: HUMULIN R SUBQ SCH ×5 (04:44→21:39)
[2016-07-26] MEDS: CLINIMIX E 4.25%-5% SOLUTION 1,000 ML IV SCH ×2 (06:05→21:38)
[2016-07-26] MEDS: SYNTHROID PO SCH (06:05)
[2016-07-26] MEDS: COLACE PO SCH ×2 (08:13→21:37)
[2016-07-26] MEDS: SINEMET 25/250 PO SCH ×3 (08:13→17:54)
[2016-07-26] MEDS: LODOSYN PO SCH ×3 (08:13→17:55)
[2016-07-26] MEDS: CELEXA PO SCH (08:14)
[2016-07-26] MEDS: VITAMIN D PO SCH (08:14)
[2016-07-26] MEDS: NEURONTIN PO SCH (08:14)
[2016-07-26] MEDS: ALTACE PO SCH (08:14)
[2016-07-26] MEDS: NORVASC PO SCH (08:15)
[2016-07-26] MEDS: ASPIRIN EC PO SCH (08:15)
[2016-07-26] MEDS: GLUCOPHAGE PO SCH (08:15)
[2016-07-26] MEDS: BUSPAR PO SCH ×2 (08:15→21:37)
[2016-07-26] MEDS: WELLBUTRIN PO SCH ×2 (08:15→21:37)
[2016-07-26] MEDS: LOVENOX SUBQ SCH (08:16)
[2016-07-26] MEDS: XANAX PO SCH ×2 (09:00→21:37)
[2016-07-26] MEDS: ZOCOR PO SCH (21:37)
[2016-07-26] MEDS: PROTONIX PO SCH (21:37)
[2016-07-26] MEDS: DULCOLAX PR SCH (21:38)
[2016-07-26] MEDS: DILAUDID IV PRN (22:31)
[2016-07-27] MEDS: HUMULIN R SUBQ SCH ×4 (07:56→22:17)
[2016-07-27] MEDS: SYNTHROID PO SCH (09:20)
[2016-07-27] MEDS: CELEXA PO SCH (09:21)
[2016-07-27] MEDS: ASPIRIN EC PO SCH (09:21)
[2016-07-27] MEDS: ALTACE PO SCH (09:21)
[2016-07-27] MEDS: BUSPAR PO SCH ×2 (09:21→20:06)
[2016-07-27] MEDS: COLACE PO SCH ×2 (09:22→20:06)
[2016-07-27] MEDS: GLUCOPHAGE PO SCH (09:22)
[2016-07-27] MEDS: LOVENOX SUBQ SCH (09:23)
[2016-07-27] MEDS: NORVASC PO SCH (09:23)
[2016-07-27] MEDS: NEURONTIN PO SCH (09:23)
[2016-07-27] MEDS: XANAX PO SCH (09:24)
[2016-07-27] MEDS: VITAMIN D PO SCH (09:24)
[2016-07-27] MEDS: SINEMET 25/250 PO SCH ×3 (09:24→18:10)
[2016-07-27] MEDS: WELLBUTRIN PO SCH ×2 (09:25→20:06)
[2016-07-27] MEDS: LODOSYN PO SCH ×3 (09:25→18:10)
[2016-07-27] MEDS: CLINIMIX E 4.25%-5% SOLUTION 1,000 ML IV SCH (18:06)
[2016-07-27] MEDS: PROTONIX PO SCH (20:06)
[2016-07-27] MEDS: ZOCOR PO SCH (20:06)
[2016-07-27] MEDS: DULCOLAX PR SCH (20:07)
[2016-07-28] MEDS: DILAUDID IV PRN ×2 (06:15→20:35)
[2016-07-28] MEDS: SYNTHROID PO SCH (07:00)
[2016-07-28] MEDS: ALTACE PO SCH (09:00)
[2016-07-28] MEDS: SINEMET 25/250 PO SCH ×3 (09:00→17:00)
[2016-07-28] MEDS: GLUCOPHAGE PO SCH (09:00)
[2016-07-28] MEDS: LODOSYN PO SCH ×3 (09:00→17:00)
[2016-07-28] MEDS: NORVASC PO SCH (09:00)
[2016-07-28] MEDS: COLACE PO SCH ×2 (09:00→20:35)
[2016-07-28] MEDS: CELEXA PO SCH (09:00)
[2016-07-28] MEDS: VITAMIN D PO SCH (09:00)
[2016-07-28] MEDS: LOVENOX SUBQ SCH (09:00)
[2016-07-28] MEDS: ASPIRIN EC PO SCH (09:00)
[2016-07-28] MEDS: BUSPAR PO SCH ×2 (09:00→20:35)
[2016-07-28] MEDS: WELLBUTRIN PO SCH ×2 (09:00→20:35)
[2016-07-28] MEDS: XANAX PO SCH (09:00)
[2016-07-28] MEDS: NEURONTIN PO SCH (09:00)
[2016-07-28] MEDS: HUMULIN R SUBQ SCH (19:36)
[2016-07-28] MEDS: ZOCOR PO SCH (20:35)
[2016-07-28] MEDS: PROTONIX PO SCH (20:35)
[2016-07-28] MEDS: ZOFRAN IV PRN (20:35)
[2016-07-28] MEDS: DULCOLAX PR SCH (20:37)
[2016-07-29] MEDS: HUMULIN R SUBQ SCH ×5 (01:52→21:49)
[2016-07-29] MEDS: SYNTHROID PO SCH (07:04)
[2016-07-29] MEDS: ALTACE PO SCH (10:03)
[2016-07-29] MEDS: CELEXA PO SCH (10:04)
[2016-07-29] MEDS: BUSPAR PO SCH ×2 (10:04→21:45)
[2016-07-29] MEDS: XANAX PO SCH (10:04)
[2016-07-29] MEDS: GLUCOPHAGE PO SCH (10:04)
[2016-07-29] MEDS: COLACE PO SCH ×2 (10:04→21:45)
[2016-07-29] MEDS: NEURONTIN PO SCH (10:04)
[2016-07-29] MEDS: VITAMIN D PO SCH (10:04)
[2016-07-29] MEDS: NORVASC PO SCH (10:04)
[2016-07-29] MEDS: LODOSYN PO SCH ×3 (10:04→17:35)
[2016-07-29] MEDS: ASPIRIN EC PO SCH (10:04)
[2016-07-29] MEDS: WELLBUTRIN PO SCH ×2 (10:04→21:45)
[2016-07-29] MEDS: LOVENOX SUBQ SCH (10:05)
[2016-07-29] MEDS: SINEMET 25/250 PO SCH ×3 (10:05→17:35)
--- NOTE | 2016-07-29 14:36 | PROGRESS NOTE ---
DATE: 07/29/2016 SUBJECTIVE: No complaints. Back pain is improving. No chest pain, shortness of breath. REVIEW OF SYSTEMS: No nausea, vomiting. All the review of systems, none reported. PAST MEDICAL HISTORY: Reviewed. PAST SURGICAL HISTORY: Reviewed. MEDICINES: Reviewed. OBJECTIVE: Vital Signs: Afebrile and heart rate is 100. Blood pressure is 146 x 79 on room air. HEENT: Atraumatic, normocephalic. Pupils equal, reactive to light. Neck: Supple. No lymphadenopathy. Chest: Clear to auscultation. Heart: Sounds are regular. Abdomen: Belly is soft, nontender. Good bowel sounds. No masses palpable. Extremities: No peripheral edema, cyanosis, clubbing. Neurologic: No obvious deficits. INVESTIGATIONS: Blood sugars are normal. ASSESSMENT AND PLAN: 1. T12 compression fracture. Waiting for rehab at [facility] 2. Discontinue Camilo catheter and Clinimix since she is eating well. Constipation is resolved. 3. Idiopathic Parkinson's disease. Continue on carbidopa/levodopa. 4. Continue the home medications for other problems, hypertension, diabetes, T12 compression fracture. Currently on vitamin D, calcitonin nasal spray. DISPOSITION: Waiting for rehab bed. If the bed is not available tomorrow, other options discussed with the patient, going home with home health care. cc: Cheko Bueno MD
[2016-07-29] MEDS: DULCOLAX PR SCH (21:44)
[2016-07-29] MEDS: PROTONIX PO SCH (21:45)
[2016-07-29] MEDS: ZOCOR PO SCH (21:45)
[2016-07-30] MEDS: DILAUDID IV PRN ×4 (02:55→19:36)
[2016-07-30] MEDS: HUMULIN R SUBQ SCH ×4 (06:25→20:17)
[2016-07-30] MEDS: SYNTHROID PO SCH (06:26)
[2016-07-30] MEDS: NORVASC PO SCH (08:12)
[2016-07-30] MEDS: ALTACE PO SCH (08:12)
[2016-07-30] MEDS: VITAMIN D PO SCH (08:13)
[2016-07-30] MEDS: GLUCOPHAGE PO SCH (08:13)
[2016-07-30] MEDS: NEURONTIN PO SCH (08:13)
[2016-07-30] MEDS: LODOSYN PO SCH ×3 (08:13→17:20)
[2016-07-30] MEDS: LOVENOX SUBQ SCH (08:13)
[2016-07-30] MEDS: WELLBUTRIN PO SCH ×2 (08:13→20:12)
[2016-07-30] MEDS: CELEXA PO SCH (08:13)
[2016-07-30] MEDS: SINEMET 25/250 PO SCH ×4 (08:13→19:21)
[2016-07-30] MEDS: COLACE PO SCH ×2 (08:13→20:11)
[2016-07-30] MEDS: XANAX PO SCH (08:13)
[2016-07-30] MEDS: ASPIRIN EC PO SCH (08:13)
[2016-07-30] MEDS: BUSPAR PO SCH ×2 (08:13→20:11)
[2016-07-30] MEDS: DULCOLAX PR SCH (20:11)
[2016-07-30] MEDS: ZOCOR PO SCH (20:12)
[2016-07-30] MEDS: PROTONIX PO SCH (20:12)
--- NOTE | 2016-07-30 20:36 | PROGRESS NOTE ---
DATE: 07/30/2016 SUBJECTIVE: No complaints. Patient has been ambulating with assistance by physical therapy. Blood sugars are running 150-160. EXAMINATION: Vital signs: Stable. HEENT Exam: Within normal limits. Neck: Supple. Chest: Clear. Heart: Sounds are regular. Neurological: No obvious neurological deficits noted. ASSESSMENT AND PLAN: 75-year-old white female waiting for rehab at [facility]. I discussed with the group social worker. Paperwork was being done. Waiting for placement and continue present medical therapy. Hopefully she will be discharged today and follow up. cc: Cheko Bueno MD
[2016-07-31] MEDS: DILAUDID IV PRN (01:26)
[2016-07-31] MEDS: SYNTHROID PO SCH (06:04)
[2016-07-31] MEDS: HUMULIN R SUBQ SCH ×4 (06:39→20:10)
[2016-07-31] MEDS: NEURONTIN PO SCH (08:59)
[2016-07-31] MEDS: BUSPAR PO SCH ×2 (08:59→20:10)
[2016-07-31] MEDS: WELLBUTRIN PO SCH ×2 (08:59→20:11)
[2016-07-31] MEDS: ALTACE PO SCH (08:59)
[2016-07-31] MEDS: ASPIRIN EC PO SCH (08:59)
[2016-07-31] MEDS: CELEXA PO SCH (08:59)
[2016-07-31] MEDS: LODOSYN PO SCH ×3 (08:59→18:15)
[2016-07-31] MEDS: VITAMIN D PO SCH (08:59)
[2016-07-31] MEDS: NORVASC PO SCH (08:59)
[2016-07-31] MEDS: LOVENOX SUBQ SCH (09:00)
[2016-07-31] MEDS: SINEMET 25/250 PO SCH ×3 (09:00→18:14)
[2016-07-31] MEDS: GLUCOPHAGE PO SCH (09:00)
[2016-07-31] MEDS: COLACE PO SCH ×2 (09:00→20:11)
[2016-07-31] MEDS: XANAX PO SCH (09:00)
[2016-07-31] MEDS ORDERED: LASIX IV ONE (10:58)
--- NOTE | 2016-07-31 18:17 | PROGRESS NOTE ---
DATE: 07/31/2016 SUBJECTIVE: No complaints. Looks stable, and vitals are stable. OBJECTIVE: Physical exam no change. ASSESSMENT/PLAN: Disposition is pending. Discussed with the professor of social work. Waiting for placement. Paperwork is being done. Continue present medical therapy. Noted some nausea. Complains of some swelling of feet. Lasix was given. Continue present medical therapy. Waiting to be discharged once she gets the placement. cc: Cheko Bueno MD
[2016-07-31] MEDS: PROTONIX PO SCH (20:10)
[2016-07-31] MEDS: DULCOLAX PR SCH (20:11)
[2016-07-31] MEDS: ZOCOR PO SCH (20:11)
[2016-07-31] MEDS: ZOFRAN IV PRN (22:04)
[2016-08-01] MEDS: SYNTHROID PO SCH (06:02)
[2016-08-01] MEDS: HUMULIN R SUBQ SCH ×4 (06:02→20:11)
[2016-08-01] MEDS: ALTACE PO SCH (08:35)
[2016-08-01] MEDS: LOVENOX SUBQ SCH (08:35)
[2016-08-01] MEDS: ASPIRIN EC PO SCH (08:35)
[2016-08-01] MEDS: COLACE PO SCH ×2 (08:36→20:03)
[2016-08-01] MEDS: CELEXA PO SCH (08:36)
[2016-08-01] MEDS: NORVASC PO SCH (08:36)
[2016-08-01] MEDS: XANAX PO SCH (08:36)
[2016-08-01] MEDS: WELLBUTRIN PO SCH ×2 (08:36→20:03)
[2016-08-01] MEDS: NEURONTIN PO SCH (08:36)
[2016-08-01] MEDS: SINEMET 25/250 PO SCH ×3 (08:36→17:40)
[2016-08-01] MEDS: VITAMIN D PO SCH (08:36)
[2016-08-01] MEDS: BUSPAR PO SCH ×2 (08:36→20:03)
[2016-08-01] MEDS: GLUCOPHAGE PO SCH (08:36)
[2016-08-01] MEDS: LODOSYN PO SCH ×3 (08:36→17:39)
[2016-08-01] MEDS: DILAUDID IV PRN ×2 (09:20→20:10)
--- NOTE | 2016-08-01 18:19 | PROGRESS NOTE ---
DATE: 08/01/2016 SUBJECTIVE: No complaints. No back pain. No focal symptoms. Eating well. REVIEW OF SYSTEMS: None reported. PHYSICAL EXAMINATION: Vital Signs: Stable. Temperature is 98 degrees, pulse is 100, respiration is 18, blood pressure is 124/64, on room air 98%. HEENT Exam: Within normal limits. Neck: Supple. No lymphadenopathy. No goiter. Chest: Clear to auscultation. Heart: Sounds are regular. Abdomen: Belly is soft, nontender. Good bowel sounds. No focal signs. Neurological: Intact. INVESTIGATIONS: Blood sugars are running well. ASSESSMENT AND PLAN: T12 compression fracture, Parkinson's disease. Stable neurological exam. Family is insisting to go for [facility]. Discussed with the social security benefits interviewer. Waiting for placement. Continue present medical therapy. Hopefully she will be discharged in the morning. cc: Cheko Bueno MD
[2016-08-01] MEDS: DULCOLAX PR SCH (20:03)
[2016-08-01] MEDS: PROTONIX PO SCH (20:03)
[2016-08-01] MEDS: ZOCOR PO SCH (20:03)
[2016-08-02] MEDS: SYNTHROID PO SCH (06:03)
[2016-08-02] MEDS: HUMULIN R SUBQ SCH ×3 (06:35→16:03)
[2016-08-02] MEDS: LODOSYN PO SCH ×3 (08:37→17:36)
[2016-08-02] MEDS: XANAX PO SCH (08:37)
[2016-08-02] MEDS: ALTACE PO SCH (08:37)
[2016-08-02] MEDS: VITAMIN D PO SCH (08:37)
[2016-08-02] MEDS: WELLBUTRIN PO SCH ×2 (08:37→22:42)
[2016-08-02] MEDS: COLACE PO SCH ×2 (08:37→22:42)
[2016-08-02] MEDS: NORVASC PO SCH (08:37)
[2016-08-02] MEDS: BUSPAR PO SCH ×2 (08:37→22:42)
[2016-08-02] MEDS: GLUCOPHAGE PO SCH (08:37)
[2016-08-02] MEDS: NEURONTIN PO SCH (08:37)
[2016-08-02] MEDS: SINEMET 25/250 PO SCH ×3 (08:37→17:36)
[2016-08-02] MEDS: CELEXA PO SCH (08:37)
[2016-08-02] MEDS: LOVENOX SUBQ SCH (08:38)
[2016-08-02] MEDS: ASPIRIN EC PO SCH (08:38)
--- NOTE | 2016-08-02 20:00 | PROGRESS NOTE ---
DATE: 08/02/2016 SUBJECTIVE: The patient is stable. No complaints. Eating well. REVIEW OF SYSTEMS: None reported. OBJECTIVE: Vital signs: Afebrile. Vitals are stable. HEENT: Within normal limits. Neck: Supple. Chest: Clear. Heart: Sounds are regular. Rest of the exam is stable. ASSESSMENT AND PLAN: Disposition: Waiting for placement. Discussed with the social and human services assistant. Hopefully she will be discharged today. Continue present medical therapy. cc: Cheko Bueno MD
[2016-08-02] MEDS: ZOCOR PO SCH (22:42)
[2016-08-02] MEDS: DULCOLAX PR SCH (22:42)
[2016-08-02] MEDS: PROTONIX PO SCH (22:42)
[2016-08-03] MEDS: SYNTHROID PO SCH (06:26)
[2016-08-03] MEDS: HUMULIN R SUBQ SCH (06:27)
[2016-08-03 07:55] VITALS: BP 130/64
[2016-08-03] MEDS: VITAMIN D PO SCH (09:00)
[2016-08-03] MEDS: LODOSYN PO SCH (09:00)
[2016-08-03] MEDS: XANAX PO SCH (09:00)
[2016-08-03] MEDS: NORVASC PO SCH (09:00)
[2016-08-03] MEDS: ALTACE PO SCH (09:00)
[2016-08-03] MEDS: LOVENOX SUBQ SCH (09:00)
[2016-08-03] MEDS: GLUCOPHAGE PO SCH (09:01)
[2016-08-03] MEDS: ASPIRIN EC PO SCH (09:01)
[2016-08-03] MEDS: WELLBUTRIN PO SCH (09:01)
[2016-08-03] MEDS: BUSPAR PO SCH (09:01)
[2016-08-03] MEDS: CELEXA PO SCH (09:01)
[2016-08-03] MEDS: COLACE PO SCH (09:01)
[2016-08-03] MEDS: SINEMET 25/250 PO SCH (09:01)
[2016-08-03] MEDS: NEURONTIN PO SCH (09:02)
== END 2016-08-03 11:35 ==
LOC: EDBD → ED 07:12 → EDIPHOLD 11:28 → 3N 13:32 → OBSVTOIN 07-17 08:06
PROVIDERS: ADMIT Internal Medicine; ATTEND Internal Medicine